=== PATIENT | female | born 1960 | race Caucasian/White ===

== ENCOUNTER 2017-08-16 09:08 | Emergency (ER) | payer SELFPAY ==
[~2017-08-16] VITALS: Ht 144.8 cm; Wt 90.0 kg
[2017-08-16 10:41] VITALS: BP 143/93
== END 2017-08-16 10:41 | disposition home or self-care (01) ==
LOC: ED 09:08
DX: T22.211A Burn of second degree of right forearm, initial encounter (principal); X08.8XXA Exposure to other specified smoke, fire and flames, initial encounter; Y93.89 Activity, other specified; Y99.8 Other external cause status; Y92.89 Other specified places as the place of occurrence of the external cause

== ENCOUNTER 2018-03-09 13:25 | Emergency (ER) | payer MEDICAID ==
[~2018-03-09] VITALS: Ht 157.5 cm; Wt 95.4 kg
[2018-03-09 14:34] VITALS: BP 132/68
== END 2018-03-09 14:34 | disposition home or self-care (01) ==
LOC: ED 13:25
DX: L30.8 Other specified dermatitis (principal)

== ENCOUNTER 2018-03-26 13:48 | Emergency (ER) | payer MEDICAID ==
[~2018-03-26] VITALS: Ht 154.9 cm; Wt 93.4 kg
[2018-03-26 14:08] VITALS: Ht 154.9 cm; Wt 93.4 kg
[2018-03-26 14:44] VITALS: BP 121/48
== END 2018-03-26 14:44 | disposition home or self-care (01) ==
LOC: ED 13:48
DX: L25.9 Unspecified contact dermatitis, unspecified cause (principal)

== ENCOUNTER 2019-05-12 09:46 | Emergency (ER) | payer MEDICAID ==
[~2019-05-12] VITALS: Ht 142.2 cm; Wt 90.7 kg
[2019-05-12 09:53] VITALS: Ht 142.2 cm; Wt 90.7 kg
[2019-05-12 12:07] VITALS: BP 138/78
== END 2019-05-12 12:08 | disposition home or self-care (01) ==
LOC: ED 09:46
DX: S82.832A Other fracture of upper and lower end of left fibula, initial encounter for closed fracture (principal); S80.12XA Contusion of left lower leg, initial encounter; S30.0XXA Contusion of lower back and pelvis, initial encounter; W01.0XXA Fall on same level from slipping, tripping and stumbling without subsequent striking against object, initial encounter; Y93.89 Activity, other specified; Y92.89 Other specified places as the place of occurrence of the external cause; Y99.8 Other external cause status
CPT/HCPCS: Q0092